=== PATIENT | female | born 1980 | race Caucasian/White ===

== ENCOUNTER 2016-08-10 10:57 | Inpatient (IN) | payer OTHER ==
[2016-08-10] MEDS ORDERED: TERBUTALINE SULFATE 1 MG/ML VIAL ONE (11:37)
[2016-08-10] MEDS ORDERED: AMMONIA AROMATIC 1 EACH AMP IH ONE (11:37)
[2016-08-10] MEDS ORDERED: LIDOCAINE 1% 30 ML SDV ONE (11:37)
[2016-08-10] MEDS ORDERED: OXYTOCIN 10 UNIT/ML VIAL ONE (11:37)
[2016-08-10] MEDS ORDERED: OLIVE OIL 118 ML BTL ONE (11:37)
[2016-08-10] MEDS ORDERED: MISOPROSTOL 200 MCG TAB ONE (11:38)
[2016-08-10] MEDS ORDERED: OXYTOCIN/RINGERS LACTATE 1,000 ML IV PRN (11:40)
[2016-08-10] MEDS ORDERED: LIDOCAINE 1% 30 ML SDV SC PRN (11:40)
[2016-08-10] MEDS ORDERED: OLIVE OIL 118 ML BTL MISC PRN (11:40)
[2016-08-10] MEDS ORDERED: TERBUTALINE SULFATE 1 MG/ML VIAL IV PRN (11:40)
[2016-08-10] MEDS ORDERED: EPSOM SALT 454 GM TP PRN (11:40)
[2016-08-10] MEDS ORDERED: LR 1,000 ML IV PRN (11:40)
[2016-08-10] MEDS ORDERED: IBUPROFEN 600 MG TAB PO PRN (11:40)
--- NOTE | 2016-08-10 11:52 | GHP ---
[f rep st] HISTORY AND PHYSICAL DATE OF ADMISSION: 08/10/2016 ADMITTING DIAGNOSES: 1. Intrauterine at 38 and 6/7 weeks. 2. Premature rupture of membranes. HISTORY OF PRESENT ILLNESS: The patient is a 35-year-old 1, para 0, at 38 and 6/7 weeks with an estimated due date 08/18/16 by LMP 11/11/15 and confirmed by ultrasound done at 8 weeks. The patient presents to the office with complaints of leakage of fluid since 6:30 this morning, clear fluid noted. She continues to leak fluid, and is having to change panty liners frequently. She does endorse some irregular contractions that began about 3 hours after rupture, nothing painful. There is good movement noted. On exam in the office, on sterile speculum exam, there was positive pooling, positive Nitrazine, and positive ferning noted. The patient was grossly ruptured. On vaginal exam, she was almost 1 cm dilated, 25% effaced, -2 station , and cephalic presentation. Patient instructed to go to Labor and Delivery. Labor and Delivery notified. The patient does have good care at [facility], and presented in her first trimester at 8 weeks. is complicated by advanced maternal age. All genetic testing was negative. The patient has a history of infertility, and during this she went for IVF but did conceive spontaneously. The patient does have a history of Hodgkin lymphoma, and she is in remission for 4 years now. She is Rh negative, did receive RhoGAM on . The patient does have a history of HSV and has been on prophylactic Valtrex since 36 weeks. The patient did have a cervical polyp noted during early with bleeding and had this removed with resolution of bleeding. Pathology came back benign hemangioma. The patient did receive Tdap in this . GBS culture is negative. GYNECOLOGIC HISTORY: Age of menarche 14. Cycles are regular, every 28-30 days , lasting 5-7 days. Last menstrual period 11/11/15. The patient denies any exposure to STDs. Gonorrhea and chlamydia cultures during this are negative. The patient has a history of an abnormal Pap smear but did not have a colposcopy. Pap test was normal in 04/29 and negative in this . The patient does have a history of HSV, no recent outbreaks. PAST MEDICAL HISTORY: Hodgkin lymphoma PAST SURGICAL HISTORY: Ruptured disk in neck, 2011, secondary to soccer injury ; ORIF, right fibula. HOME MEDICATIONS: CoQ10, Myoinositol, omega-3, vitamins. ALLERGIES: None. SOCIAL HISTORY: The patient is and lives with her . Denies any alcohol, tobacco, illicit drug use. FAMILY HISTORY: Father with coronary artery disease, chronic hypertension, type 2 diabetes. Mother with chronic hypertension. Maternal grandmother, breast cancer. LABS: AB negative. Antibody negative. RPR nonreactive. Rubella positive. HB surface antigen negative. HIV negative. She had the trio screen , Ashkenazi Muslim panel, done in 2014, and that was all negative. AFP negative. Verifi negative. H and H 11.3 and 33.6. One-hour Glucola 106. GBS is negative. PHYSICAL EXAMINATION: VITAL SIGNS: On admission, stable. The patient is afebrile. GENERAL: Alert, oriented x3. No apparent distress. Well-nourished , well-developed female. CARDIOVASCULAR: Regular rate, rhythm. LUNGS: Clear to auscultation. ABDOMEN: Gravid, soft, nontender, nondistended. EXTREMITIES : Normal to inspection without calf tenderness or edema. PELVIC: Patient was found to be grossly ruptured, almost 1 cm dilated, 25% effaced, -2 station, cephalic. ASSESSMENT: The patient is a 35-year-old 1, para 0, at 38 and 6/7 weeks with estimated due date 08/18/16, who presents with premature rupture of membranes. PLAN: 1. Admit to Labor and Delivery for expectant management. 2. GBS culture is negative. No prophylactic antibiotic is needed. 3. Will have the patient ambulate for a few hours. If no signs of labor, will start Pitocin. 4. Epidural upon request. /[id number]/MODL MTDD
[2016-08-10 12:26] LABS: % IMMATURE GRANULYOCYTES 0.7 % (0.0-1.1); ABSOLUTE IMMATURE GRANULOCYTES 0.05 10^3/uL (0.00-0.10); ADD DIFF? NO; ADD MORPH? NO; ADD SCAN? NO; ATYPICAL LYMPHOCYTE FLAG 10 (0-99); FRAGMENT RBC FLAG 0 (0-99); HEMATOCRIT 35.4 % (38.0-47.0); HEMOGLOBIN 12.5 g/dL (12.6-16.3); LEFT SHIFT FLG 0 (0-99); LIPEMIA HEMOLYSIS FLAG 90 (0-99); MEAN CELL HEMOGLOBIN CONCENTR. 35.3 g/dL (32.4-36.7); MEAN PLATELET VOLUME 11.4 fL (8.7-11.7); PLATELET CLUMPS FLAG 10 (0-99); PLATELET COUNT 156 10^3/uL (150-400); RED BLOOD CELL COUNT 3.47 10^6/uL (4.18-5.33); RED CELL DISTRIBUTION WIDTH 12.5 % (11.5-15.2)
[2016-08-10] MEDS ORDERED: LR 500 ML IV PRN (12:58)
[2016-08-10] MEDS ORDERED: OXYTOCIN/RINGERS LACTATE 500 ML IV SCH (13:00)
--- NOTE | 2016-08-10 13:40 | OBPROG ---
OBG Progress Note Assessment/Plan: Assessment: Pt is 35 y/o @ 38 6/7 wks with PROM Plan: Pt has been ambulating and only marjorie about 5-7 min, will start Pitocin per protocol Pt may eat lunch prior to starting Pitocin GBS negative, no abx needed. 08/10/16 13:11 Subjective: Pt is up ambulating and not having any pain with ctx's. Objective: 08/10/16 11:34 Patient ABO/Rh AB NEGATIVE 08/10/16 11:34 - SVE Dilation (cm): 1 Effacement (%): Less than 50 Station: -2 Current Contraction Pattern: Irregular FHR (bpm): 130 FHR Pattern Variability: Moderate FHR Category: 1 Membranes: SROM Amniotic Fluid Color: Clear ICD10 Worksheet Patient Problems: Problems Problem Status Onset PROM (premature rupture of membranes) Acute
--- NOTE | 2016-08-10 16:55 | OBPROG ---
OBG Progress Note Assessment/Plan: Assessment: Pt is 35 y/o @ 38 6/7 wks with PROM Plan: Continue current management Pitocin at 12 mu/min, increase per protocol as needed FHTs - Cat I tracing Epidural upon request Anticipate 08/10/16 16:53 Subjective: Pt is starting to feel more pain with ctx's and desires to have a cervical exam done. Objective: 08/10/16 11:34 Patient ABO/Rh AB NEGATIVE 08/10/16 11:34 - SVE Dilation (cm): 3 Effacement (%): 100 Station: -2 Current Contraction Pattern: Regular FHR (bpm): 130 FHR Pattern Variability: Moderate FHR Category: 1 Membranes: SROM Amniotic Fluid Color: Clear ICD10 Worksheet Patient Problems: Problems Problem Status Onset PROM (premature rupture of membranes) Acute
[2016-08-10] MEDS ORDERED: fentaNYL 2MCG/ML/BUP 0.1% RTU 100 ML BAG EP ONE (17:13)
[2016-08-10] MEDS ORDERED: PHENYLEPHRINE HCL 100 MCG/ML SYR ONE (17:13)
[2016-08-10] MEDS ORDERED: BUPIVACAINE 0.25% 30 ML SDV ONE (17:13)
[2016-08-10] MEDS ORDERED: fentaNYL 100 MCG/2 ML INJ ONE (17:14)
[2016-08-10] MEDS ORDERED: PHENYLEPHRINE HCL 100 MCG/ML SYR IVP PRN (18:54)
[2016-08-10] MEDS ORDERED: ONDANSETRON 4 MG/2 ML VIAL IVP PRN (18:54)
--- NOTE | 2016-08-10 18:58 | PREANESOB ---
Obstetric Pre-Anesthesia Info - General Info Proposed Procedure: Labor and delivery with pitocin. : 1 Para: 0 WBD: 39 - Info Status: Full Term Monitors: External FHR Baseline (bpm): 135 FHR Pattern: Reassuring - Labor Status Cervical Dilation per last OB SVE: 3 Station per last OB SVE: -2 Amniotic Fluid Color: Clear Pitocin: In Use Indications for Labor Analgesia: Induction of Labor (SROM.), Pain Control Labor Epidural: Proposed Anesthesia Allergies/Adverse Reactions: Allergy/AdvReac Type Severity Reaction Status Date / Time No Known Allergies Allergy Unverified 07/06/11 17:52 Visit Medications: Generic Name Dose Route Start Last Admin Trade Name Freq PRN Reason Stop Dose Admin Lactated Ringer's 1,000 mls @ 0 mls/hr 08/10/16 11:40 08/10/16 14:10 Lr IV 02/06/17 11:39 1,000 mls PRN PRN Administration SEE PROTOCOL CONDITIONS Protocol Per Protocol Oxytocin/Lactated Ringer's 1,000 mls @ 150 mls/hr 08/10/16 11:40 Pitocin 20 Units/Lr (Premix) IV PRN PRN Post- bleeding Lactated Ringer's 500 mls @ 500 mls/hr 08/10/16 12:58 Lr IV PRN PRN Maternal Hypotension Oxytocin/Lactated Ringer's 500 mls @ 0 mls/hr 08/10/16 13:00 08/10/16 14:10 Pitocin 30 Units/Lr (Premix) IV 02/06/17 12:59 500 mls CONT MARTY Administration Protocol Per Protocol Ibuprofen 600 mg 08/10/16 11:40 Motrin PO 02/06/17 11:39 Q6HRS PRN post , inflammation Lidocaine HCl 30 ml 08/10/16 11:40 Lidocaine Hcl 1% SC 02/06/17 11:39 ONCE PRN Episiotomy Magnesium Sulfate 454 gm 08/10/16 11:40 Epsom Salt TP 02/06/17 11:39 PRN PRN perineal discomfort Paradise Oil 118 ml 08/10/16 11:40 Sweet Oil MISC 02/06/17 11:39 ONCE PRN preneal massage Terbutaline Sulfate 0.25 mg 08/10/16 11:40 Brethine IV 02/06/17 11:39 ONCE PRN Tachysystole Discontinued Medications Generic Name Dose Route Start Last Admin Trade Name Jamie PRN Reason Stop Dose Admin Ammonia (Aromatic Spirit) Confirm 08/10/16 11:37 Ammonia Aromatic Administered 08/10/16 11:38 Dose 1 each IH .STK-MED ONE Bupivacaine HCl Confirm 08/10/16 17:13 Sensorcaine 0.25% Sdv Administered 08/10/16 17:14 Dose 30 ml .ROUTE .STK-MED ONE Ephedrine Sulfate Confirm 08/10/16 11:37 Ephedrine Sulfate Administered 08/10/16 11:38 Dose 50 mg .ROUTE .STK-MED ONE Fentanyl Confirm 08/10/16 17:14 Sublimaze Administered 08/10/16 17:15 Dose 100 mcg .ROUTE .STK-MED ONE Fentanyl/Bupivacaine HCl Confirm 08/10/16 17:13 Fentanyl/Bupivacaine/Ns 2 Mcg/Ml 0.1% (Premix Administered 08/10/16 17:14 Dose 100 ml EP .STK-MED ONE Lidocaine HCl Confirm 08/10/16 11:37 Lidocaine Hcl 1% Administered 08/10/16 11:38 Dose 30 ml .ROUTE .STK-MED ONE Misoprostol Confirm 08/10/16 11:38 Cytotec Administered 08/10/16 11:39 Dose 800 mcg .ROUTE .STK-MED ONE Paradise Oil Confirm 08/10/16 11:37 Sweet Oil Administered 08/10/16 11:38 Dose 118 ml .ROUTE .STK-MED ONE Oxytocin Confirm 08/10/16 11:37 Pitocin Administered 08/10/16 11:38 Dose 40 unit .ROUTE .STK-MED ONE Phenylephrine HCl Confirm 08/10/16 17:13 Jared-Synephrine Administered 08/10/16 17:14 Dose 1,000 mcg .ROUTE .STK-MED ONE Terbutaline Sulfate Confirm 08/10/16 11:37 Brethine Administered 08/10/16 11:38 Dose 1 mg .ROUTE .STK-MED ONE - Anesthesia History Response to Local Anesthetics: Normal Anesthesia & Operative History: No Prior Problems Family Anesthesia History: Negative - Social History Substance Use/Abuse: Denies - Focused Exam Blood Pressure: 111/67 Heart Rate: 81 Respiratory Rate: 20 Height/Weight (Nursing): Height 160.02 cm Weight 55.792 kg Physical Exam: Within normal limits. ASA Status: II Labs: 08/10/16 11:34 Patient ABO/Rh AB NEGATIVE 08/10/16 11:34 - Plan Anesthetic Plan: CSE Consent Signed and on Chart: Yes Patient/Guardian Understands and Agrees to Plan: Yes
--- NOTE | 2016-08-10 18:59 | POSTANESTH ---
Post Anesthetic Evaluation Cardiovascular Status: Normal, Stable, Similar to Pre-Op Cond Respiratory Status: Normal, Stable, Similar to Pre-op Cond. Level of Consciousness/Mental Status: Can Participate in Eval, Alert and Oriented Pain Control: Adequate, Prn Tx Ordered Nausea/Vomiting Control: Adequate, Prn Tx Ordered Complications Possibly Related to Anesthesia: None Noted (Tolerated CSE well, stable, comfortable.)
[2016-08-10] MEDS ORDERED: fentaNYL 2MCG/ML/BUP 0.1% RTU 100 ML EP SCH (19:00)
[2016-08-10] MEDS ORDERED: LR 500 ML IV SCH (19:00)
--- NOTE | 2016-08-10 23:05 | OBPROG ---
OBG Progress Note Assessment/Plan: Assessment: Pt is 35 y/o @ 38 6/7 wks with PROM Plan: FHTs - Cat II tracing; intermittent variable decels noted as well as intermittent late decels - resuscitation performed and strip now reassuring Pitocin restarted at 2 mu/min IUPC placed to see if adequate labor since not much cervical change noted in 4 hours s/p epidural 08/10/16 23:06 Subjective: Pt is comfortable, s/p epidural Objective: 08/10/16 11:34 Patient ABO/Rh AB NEGATIVE 08/10/16 11:34 Temp Pulse Resp BP Pulse Ox 81 20 111/67 08/10/16 18:59 08/10/16 18:59 08/10/16 18:59 - SVE Dilation (cm): 5 Effacement (%): 100 Station: 0 Current Contraction Pattern: Regular FHR (bpm): 130 FHR Pattern Variability: Moderate FHR Category: 2 Membranes: SROM Amniotic Fluid Color: Clear ICD10 Worksheet Patient Problems: Problems Problem Status Onset PROM (premature rupture of membranes) Acute
--- NOTE | 2016-08-11 01:22 | OBPROG ---
OBG Progress Note Assessment/Plan: Assessment: Pt is 35 y/o @ 39 wks with PROM Plan: Called by RN re: tracing. FHTs - Cat II; repetitive variable decels that are now deeper with amy 90 bpm and slower to return to baseline noted as well as intermittent late decels - resuscitation performed Pitocin as high as 10 mu/min with 150 MVUs - not adequate labor Minimal cervical change noted Will try amnioinfusion to see if decels improve, if no improvement will proceed with PCS secondary to intolerance to labor 08/11/16 01:24 Subjective: Pt has no complaints. Objective: 08/10/16 11:34 Patient ABO/Rh AB NEGATIVE 08/10/16 11:34 Temp Pulse Resp BP Pulse Ox 81 20 111/67 08/10/16 18:59 08/10/16 18:59 08/10/16 18:59 - SVE Dilation (cm): 6 (5-6 cm) Effacement (%): 100 Station: 0 Current Contraction Pattern: Regular FHR (bpm): 130 FHR Pattern Variability: Moderate FHR Category: 2 (Repetitive deep variable decels noted with amy 90 bpm x 90 sec with slow return to baseline; intermittent late decels noted also) Membranes: SROM Amniotic Fluid Color: Clear ICD10 Worksheet Patient Problems: Problems Problem Status Onset PROM (premature rupture of membranes) Acute
[2016-08-11] MEDS ORDERED: ceFAZolin 2 GM/DEXTROSE 100 ML IV ONE (01:43)
[2016-08-11] MEDS ORDERED: LR 500 ML IV ONE (01:43)
[2016-08-11] MEDS ORDERED: CITRIC ACID/SODIUM CITRATE 30 ML UDCUP ONE (01:52)
[2016-08-11] MEDS ORDERED: fentaNYL 100 MCG/2 ML INJ ONE (01:53)
[2016-08-11] MEDS ORDERED: LIDOCAINE 2% 5 ML SDV ONE ×2 (01:54)
[2016-08-11] MEDS ORDERED: ONDANSETRON 4 MG/2 ML VIAL ONE (01:54)
[2016-08-11] MEDS ORDERED: morphINE PF 5 MG/10 ML INJ ONE (01:54)
[2016-08-11] MEDS ORDERED: PHENYLEPHRINE 10 MG/ML SDV ONE (01:54)
[2016-08-11] MEDS ORDERED: LIDO/EPI 2% **for epidural** 20 ML SDV ONE (01:54)
[2016-08-11] MEDS ORDERED: LR 1,000 ML IV SCH (02:00)
[2016-08-11] MEDS ORDERED: OXYTOCIN 100 UNITS/10 ML VIAL ONE (02:45)
[2016-08-11] MEDS ORDERED: DOCUSATE SODIUM 100 MG CAP PO PRN (03:12)
[2016-08-11] MEDS ORDERED: HYDROCODONE/APAP 5/325 TAB PO PRN ×2 (03:12→03:25)
[2016-08-11] MEDS ORDERED: MAGNESIUM HYDROXIDE 30 ML UDCUP PO PRN (03:12)
[2016-08-11] MEDS ORDERED: POLYETHYLENE GLYCOL 3350 17 GM PKT PO PRN (03:12)
[2016-08-11] MEDS ORDERED: BISACODYL 10 MG SUPP PR PRN (03:12)
[2016-08-11] MEDS ORDERED: LACTULOSE 20 GM/30 ML UDCUP PO PRN (03:12)
[2016-08-11] MEDS ORDERED: SIMETHICONE 80 MG TAB CHEW PO PRN (03:12)
--- NOTE | 2016-08-11 03:18 | OBPROC ---
- Delivery Pre-op Diagnoses: intolerance to labor Post-op Diagnoses: intolerance to labor Procedure: Primary Surgeon: Estefani Verde Deputy Sheriff [employer]: Ela Horton Anesthesiologist: Marco Moraes Pre Press Operator/AUTOMOBILE MECHANIC APPRENTICE: Carlos Bo Anesthesia: Spinal Complications: None Findings: Grossly normal appearing uterus, tubes and ovaries b/l Specimen(s)/Path: Other (Specify) (none) IV Fluid (ml): 1,300 EBL: 700cc UO: 100 cc clear urine at end of procedure - Info A Delivery Date: 08/11/16 Delivery Time: 02:33 Sex of Infant: Male Score (1 Min): 9 Score (5 Min): 9
[2016-08-11] MEDS ORDERED: fentaNYL 100 MCG/2 ML INJ IVP PRN (03:25)
[2016-08-11] MEDS ORDERED: PHENYLEPHRINE HCL 100 MCG/ML SYR IVP PRN (03:25)
[2016-08-11] MEDS ORDERED: HYDROmorphONE/DILAUDID 1 MG/ML SYR IVP PRN (03:25)
[2016-08-11] MEDS ORDERED: OXYCODONE/APAP 5/325 TAB PO PRN (03:25)
[2016-08-11] MEDS ORDERED: ONDANSETRON 4 MG/2 ML VIAL IVP PRN ×2 (03:25)
[2016-08-11] MEDS ORDERED: NALOXONE HCL 0.4 MG/ML INJ IVP PRN ×2 (03:25)
--- NOTE | 2016-08-11 03:31 | POSTANESTH ---
Post Anesthetic Evaluation Cardiovascular Status: Normal, Stable Respiratory Status: Normal, Stable Level of Consciousness/Mental Status: Can Participate in Eval Pain Control: Adequate, Prn Tx Ordered Nausea/Vomiting Control: Adequate, Prn Tx Ordered Complications Possibly Related to Anesthesia: None Noted
[2016-08-11 03:34] LABS: PH VENOUS CORD BLOOD 7.36 (7.20-7.42)
[2016-08-11 03:35] LABS: BASE EXCESS CORD -1.5 mEq/L (-13.6--3.2); CORD BLOOD PCO2 55.3 mmHg (37-60); PH ARTERIAL CORD BLOOD 7.28 (7.10-7.37)
[2016-08-11] MEDS ORDERED: KETOROLAC 30 MG/1 ML SDV ONE (04:14)
[2016-08-11] MEDS: KETOROLAC 30 MG/1 ML SDV IVP SCH ×3 (04:17→16:13)
--- NOTE | 2016-08-11 04:30 | GOP ---
[f rep st] OPERATIVE REPORT DATE OF OPERATION: 08/11/2016 SURGEON: Estefani Verde DO GRAPHIC DESIGN ASSISTANT: ADWOA Renteria, Surgical 1st Assist ANESTHESIA: Spinal. PREOPERATIVE DIAGNOSIS: 1. Intrauterine at 39 weeks, PROM 2. intolerance to labor. POSTOPERATIVE DIAGNOSIS: 1. Intrauterine at 39 weeks, PROM 2. intolerance to labor. PROCEDURE PERFORMED: Primary low-transverse section. FINDINGS: Grossly normal-appearing uterus, tubes and ovaries bilaterally. SPECIMENS: None. ESTIMATED BLOOD LOSS: 700 cc. INDICATIONS: The patient is a 35-year-old 1, para 0, who presents at 38 and 6/7 weeks with premature rupture of membranes. Pitocin was started. Patient progressed to 5 to 6 cm dilatation, received an epidural, but started to have repetitive deep variable decels, as well as late decels and no improvement after amnio infusion. DESCRIPTION OF PROCEDURE: Patient was taken to the operating room where spinal anesthesia was obtained without difficulty. Patient was prepped and draped in the usual sterile fashion, placed in supine position with tilt. Skin incision was then made with a knife and extended to the fascia with the Bovie. Fascia was then nicked, extended bilaterally with Shelby scissors. Fascia was then dissected off the rectus muscles bluntly and in the midline. Peritoneum was elevated with hemostats, entered bluntly and extended bilaterally. Bladder blade was then placed. The visceral peritoneum was then entered with Metzenbaum scissors. Bladder flap created using both sharp and blunt dissection. Bladder blade was then advanced. Uterus was incised with a knife in horizontal fashion. Lower uterine segment was then extended anteriorly , posteriorly. Baby was then delivered in cephalic presentation without difficulty. The cord was clamped x2, ligated. Baby was handed off to nurse practitioner. It is a baby boy, Apgars 9/9. Section of the cord was handed off for collection of cord gases which are pending. Placenta was then delivered spontaneously intact. Uterus exteriorized, cavity was cleaned with moist sponges. Uterine incision was then closed with a running stitch of 0 Vicryl. Hemostasis was noted. A second imbricating layer was then done with 0 Vicryl suture. Again, hemostasis was noted. At this time , we visualized the ovaries and tubes which appeared grossly normal. We then inspected the incision which did appear hemostatic. Uterus was then placed back inside the abdomen. Gutters were then cleaned of blood and clots. Incision was visualized once again and there was hemostasis. The rectus muscles were then approximated using 2-0 Vicryl. The fascia was then closed with 0 Vicryl in a running fashion. Hemostasis was noted. Skin incision was then closed with 4-0 Vicryl on a Renzo needle. Patient tolerated procedure well. No complications. Sponge, lap, and instrument counts correct x2. Patient did receive 2 g of Ancef prior to the incision. Patient was taken out of supine position, and taken to recovery room in stable condition. FLUIDS REPLACED: 1300 cc. URINE OUTPUT: 100 cc of clear urine at the end of procedure. COMPLICATIONS: None. /[id number]/MODL MTDD
--- NOTE | 2016-08-11 15:05 | SOAPPROG ---
SOAP Progress Note Assessment/Plan: Assessment: 35y/o s/p C/S, day 0 Plan: Routine PP care Pt okay to shower at 18hrs post-delivery if desires Anticipate discharge home 08/1308/11/16 15:02 Subjective: Pt resting comfortably in bed. Loco cath in place, SCDs on. Doing well, reports pain well-controlled. . Objective: Vital Signs Temp Pulse Resp BP Pulse Ox 36.6 C 86 16 98/63 L 92 08/11/16 13:40 08/11/16 13:40 08/11/16 13:40 08/11/16 13:40 08/11/16 13:40 Laboratory Results 08/10/16 11:34 08/10/16 08/11/16 08/12/16 05:59 05:59 05:59 Intake Total 3630 Output Total 1900 900 Balance 1730 -900 Physical Exam - Physical Exam General Appearance: alert, no apparent distress Respiratory: lungs clear, normal breath sounds Cardiac/Chest: regular rate, rhythm, edema (SCDs on) Abdomen: non-tender, soft, other (fundus firm @U. Incision dressing clean/dry.) Skin: normal color, warm/dry Neuro/Psych: alert, normal mood/affect, oriented x 3 ICD10 Worksheet Patient Problems: Problems Problem Status Onset PROM (premature rupture of membranes) Acute
[2016-08-11] MEDS: SENNOSIDES/DOCUSATE SODIUM TAB PO SCH (17:13)
[2016-08-12] MEDS: KETOROLAC 30 MG/1 ML SDV IVP SCH (01:59)
[2016-08-12] MEDS: SENNOSIDES/DOCUSATE SODIUM TAB PO SCH ×3 (04:33→23:17)
[2016-08-12] MEDS: IBUPROFEN 600 MG TAB PO PRN ×3 (08:02→20:34)
--- NOTE | 2016-08-12 10:39 | SOAPPROG ---
SOAP Progress Note Assessment/Plan: Assessment: with some difficulty pain well managed ambulating without difficulty not passing gas voiding without difficulty FF@u scant rubra lochia incision well approximated no ss of infection Plan:ambulating, bowel protocol, consult, assistance with while in room, education, would like to discharge tomorrow 08/12/16 10:37 Subjective: Doing well. Having some difficulty with . At this time has not passed gas Objective: Vital Signs Temp Pulse Resp BP Pulse Ox 36.3 C 76 16 114/70 96 08/12/16 08:00 08/12/16 08:00 08/12/16 08:00 08/12/16 08:00 08/12/16 02:00 Laboratory Results 08/12/16 02:45 08/11/16 08/12/16 08/13/16 05:59 05:59 05:59 Intake Total 3630 1275 Output Total 1900 2950 Balance 1730 -1675 - Time Spent With Patient Time Spent With Patient: 15 minutes - Pending Discharge Pending Discharge Within 24 Hours: Yes Pending Discharge Date: 08/13/16 Pending Discharge Time: 11:00 ICD10 Worksheet Patient Problems: Problems Problem Status Onset PROM (premature rupture of membranes) Acute
--- NOTE | 2016-08-12 10:41 | SOAPPROG ---
SOAP Progress Note Assessment/Plan: Assessment: with some difficulty pain well managed ambulating without difficulty not passing gas voiding without difficulty FF@u scant rubra lochia incision well approximated no ss of infection anemic Plan:ambulating, bowel protocol, consult, assistance with while in room, education, would like to discharge tomorrow, iron 08/12/16 10:37 08/12/16 10:40 Objective: Vital Signs Temp Pulse Resp BP Pulse Ox 36.3 C 76 16 114/70 96 08/12/16 08:00 08/12/16 08:00 08/12/16 08:00 08/12/16 08:00 08/12/16 02:00 Laboratory Results 08/12/16 02:45 08/11/16 08/12/16 08/13/16 05:59 05:59 05:59 Intake Total 3630 1275 Output Total 1900 2950 Balance 1730 -1675 Physical Exam - Physical Exam General Appearance: WD/WN, alert, no apparent distress Respiratory: chest non-tender, lungs clear, normal breath sounds Cardiac/Chest: regular rate, rhythm Abdomen: non-tender, soft, other (no passing gas yet, bowel sounds diminished) Pelvic Exam: vaginal bleeding (scant rubra lochia) Skin: normal color, warm/dry Extremities: normal range of motion, Elder's sign (negative bilaterally) Neuro/Psych: no motor/sensory deficits, alert, normal mood/affect, oriented x 3 ICD10 Worksheet Patient Problems: Problems Problem Status Onset PROM (premature rupture of membranes) Acute
[2016-08-12] MEDS: IRON POLYSAC/IRON HEME 28 MG TAB PO SCH (21:56)
[2016-08-12 22:14] VITALS: RESP 16
[2016-08-13] MEDS: IBUPROFEN 600 MG TAB PO PRN (04:17)
[2016-08-13 08:23] VITALS: BP 116/80; PULSE 84; TEMP 97; O2SAT 93
[2016-08-13] MEDS: IRON POLYSAC/IRON HEME 28 MG TAB PO SCH (08:45)
--- NOTE | 2016-08-13 08:52 | SOAPPROG ---
SOAP Progress Note Assessment/Plan: Assessment: 35 yo pod# 2 s/p PLTCS for intolerance of labor breast feeding uncomplicated post and post operative course anemia Plan: routine post and post operative care discharge instructions iron 08/13/16 08:49 08/13/16 08:50 Subjective: patient is doing great! pain is well controlled. normal lochia. breast feeding is going well. denies headache and changes in vision. ready to go home. reviewed post operative care and discharge instructions Objective: Vital Signs Temp Pulse Resp BP Pulse Ox 36.1 C 84 16 116/80 93 08/13/16 08:23 08/13/16 08:23 08/13/16 08:23 08/13/16 08:23 08/13/16 08:23 Laboratory Results 08/12/16 02:45 08/12/16 08/13/16 08/14/16 05:59 05:59 05:59 Intake Total 1275 Output Total 2950 Balance -1675 Physical Exam - Physical Exam General Appearance: WD/WN, alert, no apparent distress Respiratory: chest non-tender, lungs clear, normal breath sounds Cardiac/Chest: normal peripheral pulses, regular rate, rhythm Abdomen: normal bowel sounds, non-tender, soft, other (fundus firm and non tender) Skin: normal color, warm/dry, other (incision clean dry intact) Extremities: normal range of motion, non-tender, normal inspection, normal capillary refill Neuro/Psych: no motor/sensory deficits, alert, normal mood/affect, oriented x 3 ICD10 Worksheet Patient Problems: Problems Problem Status Onset PROM (premature rupture of membranes) Acute
[2016-08-13] MEDS: SENNOSIDES/DOCUSATE SODIUM TAB PO SCH (11:45)
== END 2016-08-13 10:15 | disposition home or self-care (01) | DRG 765 ==
LOC: FLD 10:57 → FOB 08-11 06:42
PROVIDERS: ADMIT Obstetrics & Gynecology; ATTEND Obstetrics & Gynecology
DX: O42.02 Full-term premature rupture of membranes, onset of labor within 24 hours of rupture (principal); O76 Abnormality in fetal heart rate and rhythm complicating labor and delivery; Z85.72 Personal history of non-Hodgkin lymphomas; O98.513 Other viral diseases complicating pregnancy, third trimester; O90.81 Anemia of the puerperium; Z3A.38 38 weeks gestation of pregnancy; Z37.0 Single live birth
CPT/HCPCS: J0690; J1885; J2274; J2370; J2405; J2590; J3010; J3105

== ENCOUNTER → 2018-10-26 | Outpatient (CLI) | payer OTHER | LOC: FIMAGING 07:27 ==